=== PATIENT | female | born 1960 | race African-American/Black ===

== ENCOUNTER 2017-07-24 13:25 | Inpatient (IN) | payer OTHER ==
[2017-07-24 15:47] VITALS: BMI 24.7
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
[2017-07-24] MEDS ORDERED: MAGNESIUM HYDROX 2400MG/30ML ORAL SUSPENSION 30 ML CUP PO PRN (18:18)
[2017-07-24] MEDS ORDERED: ACETAMINOPHEN 325 MG TABLET (FP) PO PRN (18:18)
[2017-07-24] MEDS ORDERED: LOPERAMIDE HCL 2 MG CAPSULE PO PRN (18:18)
[2017-07-24] MEDS ORDERED: MAG HYDROX/AL HYDROX/SIMETH 30 ML UNIT-DOSE CUP PO PRN (18:18)
[2017-07-24] MEDS ORDERED: MENTHOL/PHENOL 1 EACH UD MM PRN (18:18)
[2017-07-24] MEDS ORDERED: MAGNESIUM CITRATE 300 ML BOTTLE PO PRN (18:18)
[2017-07-24] MEDS ORDERED: NICOTINE POLACRILEX 2 MG GUM BC PRN (18:18)
[2017-07-24] MEDS ORDERED: P-EPHED 60MG/TRIPROLIDI 2.5MG TABLET PO PRN (18:18)
[2017-07-24] MEDS ORDERED: ALBUTEROL SO4 2.5/IPRATROPIUM 0.5 INH SOL 3 ML VIAL.NEB. NEB PRN (18:22)
[2017-07-24] MEDS ORDERED: ALBUTEROL SO4 18 GM HFA INHALER IH PRN (18:22)
[2017-07-24] MEDS ORDERED: BACLOFEN 10 MG TABLET (FP) PO PRN (18:23)
[2017-07-24] MEDS ORDERED: TUBERCULIN PPD 5 TU/0.1ML VIAL ID ONE (22:03)
[2017-07-24] MEDS: THIAMINE HCL 100 MG TABLET (FP) PO SCH (22:07)
[2017-07-24] MEDS: BUDESONIDE/FORMETEROL FUMARATE 80/4.5 mcg INHALER IH SCH (22:07)
[2017-07-24] MEDS: BUPRENORPHINE/NALOXONE 8 MG/2 MG FILM PACKET SL SCH (22:08)
[2017-07-24] MEDS: RANITIDINE HCL 150 MG TABLET (FP) PO SCH (22:09)
[2017-07-24] MEDS: diphenhydrAMINE HCL 50 MG CAPSULE PO PRN (22:09)
[2017-07-24] MEDS: GABAPENTIN 300 MG CAPSULE (FP) PO SCH (22:09)
[2017-07-24] MEDS: MONTELUKAST NA 10 MG TABLET PO SCH (22:10)
[2017-07-24] MEDS: METHYL SALICYLATE/MENTHOL OINT 30 GM TUBE TP SCH (22:10)
[2017-07-24] MEDS: guaiFENesin/D-METHORPHAN HB 10 ML UNIT-DOSE CUPS PO PRN (22:11)
[2017-07-24] MEDS: traZODone HCL 100 MG TABLET (FP) PO SCH (22:58)
[2017-07-24] MEDS: ARIPiprazole 10 MG TABLET PO SCH (23:20)
[2017-07-25 01:27] LABS: URINE APPEARANCE CLOUDY; URINE BILIRUBIN NEGATIVE (NEGATIVE); URINE BLOOD NEGATIVE (NEGATIVE); URINE COLOR YELLOW; URINE GLUCOSE (UA) NEGATIVE (NEGATIVE); URINE KETONE NEGATIVE (NEGATIVE); URINE NITRITE NEGATIVE (NEGATIVE); URINE PROTEIN NEGATIVE (NEGATIVE); URINE UROBILINOGEN NEGATIVE mg/dL (0.2-1.0)
[2017-07-25] MEDS: GABAPENTIN 300 MG CAPSULE (FP) PO SCH ×3 (06:17→21:54)
[2017-07-25] MEDS: BUPRENORPHINE/NALOXONE 8 MG/2 MG FILM PACKET SL SCH ×3 (06:18→21:55)
[2017-07-25] MEDS ORDERED: PT OWN MED DRAWER 7, Y5N ONE (08:47)
[2017-07-25] MEDS ORDERED: predniSONE 10 MG TABLET (UD) PO ONE (10:00)
[2017-07-25 10:03] LABS: URINE LEUK ESTERASE TRACE (NEGATIVE)
[2017-07-25 10:05] LABS: URINE BACTERIA FEW /hpf (NEGATIVE); URINE RBC 0-3 /hpf (0-3); URINE WBC 0-3 /hpf (3-5)
[2017-07-25] MEDS: RANITIDINE HCL 150 MG TABLET (FP) PO SCH ×2 (10:38→21:54)
[2017-07-25] MEDS: BENZTROPINE MESYLATE 1 MG TABLET (FP) PO SCH (10:38)
[2017-07-25] MEDS: NICOTINE 14 MG/24 HOURS TOPICAL PATCH TD SCH (10:38)
[2017-07-25] MEDS: BUDESONIDE/FORMETEROL FUMARATE 80/4.5 mcg INHALER IH SCH ×2 (10:38→21:56)
[2017-07-25] MEDS: PRENATAL VITAMINS W/ FOLIC ACID TABLET (FP) PO SCH (10:38)
[2017-07-25] MEDS: METHYL SALICYLATE/MENTHOL OINT 30 GM TUBE TP SCH ×2 (10:41→21:55)
[2017-07-25 12:38] LABS: MCH 27.6 pg (25.7-33.7); MCHC 32.1 g/dl (32.0-36.0); MEAN CELL VOLUME 86.2 fl (80-96); MEAN PLT VOLUME 9.2 fl (7.5-11.1); PLATELET COUNT 162 K/MM3 (134-434); RDW 14.7 % (11.6-15.6); WHITE BLOOD COUNT 4.8 K/mm3 (4.0-10.0)
[2017-07-25 12:39] LABS: ALBUMIN 2.9 g/dl (3.4-5.0); ALK PHOS 103 U/L (45-117); ANION GAP 6 (8-16); BILIRUBIN,TOTAL 0.2 mg/dL (0.2-1.0); CO2 25 mmol/L (21-32); CREATININE 1.1 mg/dL (0.55-1.02); GLUCOSE,RANDOM 151 mg/dL (74-106); SGOT/AST 12 U/L (15-37); SGPT/ALT 26 U/L (12-78); TOT PROT 5.9 g/dl (6.4-8.2)
[2017-07-25] MEDS: THIAMINE HCL 100 MG TABLET (FP) PO SCH (21:53)
[2017-07-25] MEDS: ARIPiprazole 10 MG TABLET PO SCH (21:54)
[2017-07-25] MEDS: MONTELUKAST NA 10 MG TABLET PO SCH (21:54)
[2017-07-25] MEDS: traZODone HCL 100 MG TABLET (FP) PO SCH (21:54)
[2017-07-26] MEDS: GABAPENTIN 300 MG CAPSULE (FP) PO SCH ×3 (07:06→22:04)
[2017-07-26] MEDS: BUPRENORPHINE/NALOXONE 8 MG/2 MG FILM PACKET SL SCH ×3 (07:07→22:10)
[2017-07-26] MEDS ORDERED: PT OWN MED DRAWER 7, Y5N ONE (09:03)
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
[2017-07-26] MEDS ORDERED: predniSONE 20 MG TABLET (UD) PO ONE ×2 (10:00)
[2017-07-26] MEDS: RANITIDINE HCL 150 MG TABLET (FP) PO SCH ×2 (10:50→22:04)
[2017-07-26] MEDS: METHYL SALICYLATE/MENTHOL OINT 30 GM TUBE TP SCH ×2 (10:50→22:08)
[2017-07-26] MEDS: BENZTROPINE MESYLATE 1 MG TABLET (FP) PO SCH (10:50)
[2017-07-26] MEDS: PRENATAL VITAMINS W/ FOLIC ACID TABLET (FP) PO SCH (10:51)
[2017-07-26] MEDS: BUDESONIDE/FORMETEROL FUMARATE 80/4.5 mcg INHALER IH SCH ×2 (10:52→22:04)
[2017-07-26] MEDS: NICOTINE 14 MG/24 HOURS TOPICAL PATCH TD SCH (10:54)
--- NOTE | 2017-07-26 11:59 | EKG ---
Test Reason : Blood Pressure : / mmHG Vent. Rate : 096 BPM Atrial Rate : 096 BPM P-R Int : 138 ms QRS Dur : 090 ms QT Int : 366 ms P-R-T Axes : 044 020 034 degrees QTc Int : 462 ms NORMAL SINUS RHYTHM POSSIBLE ANTERIOR INFARCT , AGE UNDETERMINED ABNORMAL ECG NO PREVIOUS ECGS AVAILABLE Confirmed by TRUNG WALLACE, PRAVEEN ([id number]) on 07/26/2017 11:59:07 AM Referred By: Confirmed By:PRAVEEN NINO MD
[2017-07-26] MEDS: MONTELUKAST NA 10 MG TABLET PO SCH (22:04)
[2017-07-26] MEDS: traZODone HCL 100 MG TABLET (FP) PO SCH (22:04)
[2017-07-26] MEDS: ARIPiprazole 10 MG TABLET PO SCH (22:06)
[2017-07-26] MEDS: THIAMINE HCL 100 MG TABLET (FP) PO SCH (22:10)
[2017-07-27] MEDS: GABAPENTIN 300 MG CAPSULE (FP) PO SCH ×3 (06:41→21:48)
[2017-07-27] MEDS: BUPRENORPHINE/NALOXONE 8 MG/2 MG FILM PACKET SL SCH ×2 (06:41→13:33)
[2017-07-27] MEDS ORDERED: cloNIDine HCL 0.1 MG TABLET PO ONE (07:02)
[2017-07-27] MEDS ORDERED: PT OWN MED DRAWER 7, Y5N ONE ×2 (09:14→10:38)
[2017-07-27] MEDS ORDERED: predniSONE 10 MG TABLET (UD) PO ONE (10:00)
[2017-07-27] MEDS: PRENATAL VITAMINS W/ FOLIC ACID TABLET (FP) PO SCH (10:37)
[2017-07-27] MEDS: RANITIDINE HCL 150 MG TABLET (FP) PO SCH ×2 (10:37→22:19)
[2017-07-27] MEDS: NICOTINE 14 MG/24 HOURS TOPICAL PATCH TD SCH (10:37)
[2017-07-27] MEDS: BENZTROPINE MESYLATE 1 MG TABLET (FP) PO SCH (10:37)
[2017-07-27] MEDS: BUDESONIDE/FORMETEROL FUMARATE 80/4.5 mcg INHALER IH SCH ×2 (10:39→21:48)
[2017-07-27] MEDS: METHYL SALICYLATE/MENTHOL OINT 30 GM TUBE TP SCH ×2 (11:00→21:48)
--- NOTE | 2017-07-27 13:34 | PN ---
[facility] Progress Note Note: decreased to 8mg bid suboxone effective tomorrow
[2017-07-27] MEDS: ARIPiprazole 10 MG TABLET PO SCH (21:48)
[2017-07-27] MEDS: MONTELUKAST NA 10 MG TABLET PO SCH (21:48)
[2017-07-27] MEDS: traZODone HCL 100 MG TABLET (FP) PO SCH (21:48)
[2017-07-27] MEDS: THIAMINE HCL 100 MG TABLET (FP) PO SCH (21:49)
[2017-07-27] MEDS: diphenhydrAMINE HCL 50 MG CAPSULE PO PRN (21:50)
[2017-07-28] MEDS: GABAPENTIN 300 MG CAPSULE (FP) PO SCH (06:44)
[2017-07-28] MEDS ORDERED: PT OWN MED DRAWER 7, Y5N ONE (08:52)
[2017-07-28] MEDS ORDERED: CYCLOBENZAPRINE HCL 5 MG TABLET PO PRN (09:45)
[2017-07-28] MEDS: RANITIDINE HCL 150 MG TABLET (FP) PO SCH ×2 (09:52→21:57)
[2017-07-28] MEDS: BUDESONIDE/FORMETEROL FUMARATE 80/4.5 mcg INHALER IH SCH ×2 (09:52→21:59)
[2017-07-28] MEDS: PRENATAL VITAMINS W/ FOLIC ACID TABLET (FP) PO SCH (09:52)
[2017-07-28] MEDS: BENZTROPINE MESYLATE 1 MG TABLET (FP) PO SCH (09:52)
[2017-07-28] MEDS: NICOTINE 14 MG/24 HOURS TOPICAL PATCH TD SCH (09:52)
[2017-07-28] MEDS: METHYL SALICYLATE/MENTHOL OINT 30 GM TUBE TP SCH ×2 (09:54→21:58)
[2017-07-28] MEDS ORDERED: BUPRENORPHINE/NALOXONE 8 MG/2 MG FILM PACKET SL SCH (10:00)
[2017-07-28] MEDS ORDERED: GABAPENTIN 300 MG CAPSULE (FP) PO SCH (10:15)
[2017-07-28] MEDS: BUPRENORPHINE/NALOXONE 8 MG/2 MG FILM PACKET SL SCH (11:01)
[2017-07-28] MEDS: TIOTROPIUM BROMIDE 18 MCG/INH (DEVICE W/ 5 CAPSULES) IH SCH (11:01)
[2017-07-28] MEDS: GABAPENTIN 100 MG CAPSULE (FP) PO SCH ×2 (13:42→21:57)
[2017-07-28] MEDS: THIAMINE HCL 100 MG TABLET (FP) PO SCH (21:57)
[2017-07-28] MEDS: traZODone HCL 100 MG TABLET (FP) PO SCH (21:57)
[2017-07-28] MEDS: ARIPiprazole 10 MG TABLET PO SCH (21:58)
[2017-07-28] MEDS: MONTELUKAST NA 10 MG TABLET PO SCH (21:58)
[2017-07-29] MEDS: GABAPENTIN 100 MG CAPSULE (FP) PO SCH ×3 (06:45→21:47)
[2017-07-29] MEDS: NICOTINE 14 MG/24 HOURS TOPICAL PATCH TD SCH (09:07)
[2017-07-29] MEDS: PRENATAL VITAMINS W/ FOLIC ACID TABLET (FP) PO SCH (09:08)
[2017-07-29] MEDS: RANITIDINE HCL 150 MG TABLET (FP) PO SCH ×2 (09:08→21:47)
[2017-07-29] MEDS: METHYL SALICYLATE/MENTHOL OINT 30 GM TUBE TP SCH ×2 (09:08→21:48)
[2017-07-29] MEDS: BENZTROPINE MESYLATE 1 MG TABLET (FP) PO SCH (09:08)
[2017-07-29] MEDS: TIOTROPIUM BROMIDE 18 MCG/INH (DEVICE W/ 5 CAPSULES) IH SCH (09:09)
[2017-07-29] MEDS: BUDESONIDE/FORMETEROL FUMARATE 80/4.5 mcg INHALER IH SCH ×2 (09:09→21:48)
[2017-07-29] MEDS: BUPRENORPHINE/NALOXONE 8 MG/2 MG FILM PACKET SL SCH ×3 (09:21→21:48)
[2017-07-29] MEDS: THIAMINE HCL 100 MG TABLET (FP) PO SCH (21:47)
[2017-07-29] MEDS: traZODone HCL 100 MG TABLET (FP) PO SCH (21:47)
[2017-07-29] MEDS: ARIPiprazole 10 MG TABLET PO SCH (21:48)
[2017-07-29] MEDS: MONTELUKAST NA 10 MG TABLET PO SCH (21:48)
[2017-07-30] MEDS: guaiFENesin/D-METHORPHAN HB 10 ML UNIT-DOSE CUPS PO PRN ×2 (03:08→13:11)
[2017-07-30] MEDS: GABAPENTIN 100 MG CAPSULE (FP) PO SCH ×3 (06:50→21:46)
[2017-07-30] MEDS: METHYL SALICYLATE/MENTHOL OINT 30 GM TUBE TP SCH ×2 (10:25→21:45)
[2017-07-30] MEDS: TIOTROPIUM BROMIDE 18 MCG/INH (DEVICE W/ 5 CAPSULES) IH SCH (10:26)
[2017-07-30] MEDS: RANITIDINE HCL 150 MG TABLET (FP) PO SCH ×2 (10:26→21:46)
[2017-07-30] MEDS: PRENATAL VITAMINS W/ FOLIC ACID TABLET (FP) PO SCH (10:26)
[2017-07-30] MEDS: BENZTROPINE MESYLATE 1 MG TABLET (FP) PO SCH (10:26)
[2017-07-30] MEDS: NICOTINE 14 MG/24 HOURS TOPICAL PATCH TD SCH (10:27)
[2017-07-30] MEDS: BUDESONIDE/FORMETEROL FUMARATE 80/4.5 mcg INHALER IH SCH ×2 (10:27→21:46)
[2017-07-30] MEDS: BUPRENORPHINE/NALOXONE 8 MG/2 MG FILM PACKET SL SCH ×2 (10:28→21:47)
[2017-07-30] MEDS ORDERED: PT OWN MED DRAWER 7, Y5N ONE (11:59)
[2017-07-30] MEDS ORDERED: ARIPiprazole 5 MG TABLET (FP) ONE (18:46)
[2017-07-30] MEDS: ARIPiprazole 10 MG TABLET PO SCH (21:44)
[2017-07-30] MEDS: traZODone HCL 100 MG TABLET (FP) PO SCH (21:45)
[2017-07-30] MEDS: MONTELUKAST NA 10 MG TABLET PO SCH (21:46)
[2017-07-30] MEDS: SUVOREXANT 10 MG TABLET PO PRN (21:47)
[2017-07-30] MEDS: THIAMINE HCL 100 MG TABLET (FP) PO SCH (21:47)
[2017-07-31] MEDS: GABAPENTIN 100 MG CAPSULE (FP) PO SCH ×3 (06:49→22:07)
--- NOTE | 2017-07-31 08:14 | PN ---
[facility] Progress Note Note: HISTORY OF HTN ON HYDROCHLOROTHIAZIDE 25 MGS PO DIALY,ORDERED,JESSEE MONITORING
[2017-07-31] MEDS: HYDROCHLOROTHIAZIDE 25 MG TABLET (FP) PO SCH (09:01)
[2017-07-31] MEDS: PRENATAL VITAMINS W/ FOLIC ACID TABLET (FP) PO SCH (10:53)
[2017-07-31] MEDS: RANITIDINE HCL 150 MG TABLET (FP) PO SCH ×2 (10:53→22:07)
[2017-07-31] MEDS: BUDESONIDE/FORMETEROL FUMARATE 80/4.5 mcg INHALER IH SCH ×2 (10:53→22:08)
[2017-07-31] MEDS: TIOTROPIUM BROMIDE 18 MCG/INH (DEVICE W/ 5 CAPSULES) IH SCH (10:53)
[2017-07-31] MEDS: NICOTINE 14 MG/24 HOURS TOPICAL PATCH TD SCH (10:53)
[2017-07-31] MEDS: BENZTROPINE MESYLATE 1 MG TABLET (FP) PO SCH (10:53)
[2017-07-31] MEDS: BUPRENORPHINE/NALOXONE 8 MG/2 MG FILM PACKET SL SCH ×2 (10:53→22:08)
[2017-07-31] MEDS: METHYL SALICYLATE/MENTHOL OINT 30 GM TUBE TP SCH ×2 (10:56→22:08)
[2017-07-31] MEDS ORDERED: ARIPiprazole 5 MG TABLET (FP) ONE (19:35)
[2017-07-31] MEDS: THIAMINE HCL 100 MG TABLET (FP) PO SCH (22:07)
[2017-07-31] MEDS: traZODone HCL 100 MG TABLET (FP) PO SCH (22:07)
[2017-07-31] MEDS: MONTELUKAST NA 10 MG TABLET PO SCH (22:08)
[2017-07-31] MEDS: ARIPiprazole 10 MG TABLET PO SCH (22:08)
[2017-07-31] MEDS: SUVOREXANT 10 MG TABLET PO PRN (22:11)
[2017-08-01] MEDS: GABAPENTIN 100 MG CAPSULE (FP) PO SCH ×3 (06:43→21:53)
[2017-08-01] MEDS ORDERED: PT OWN MED DRAWER 7, Y5N ONE (09:10)
[2017-08-01] MEDS: BUDESONIDE/FORMETEROL FUMARATE 80/4.5 mcg INHALER IH SCH ×2 (10:34→21:54)
[2017-08-01] MEDS: TIOTROPIUM BROMIDE 18 MCG/INH (DEVICE W/ 5 CAPSULES) IH SCH (10:34)
[2017-08-01] MEDS: PRENATAL VITAMINS W/ FOLIC ACID TABLET (FP) PO SCH (10:35)
[2017-08-01] MEDS: BENZTROPINE MESYLATE 1 MG TABLET (FP) PO SCH (10:35)
[2017-08-01] MEDS: RANITIDINE HCL 150 MG TABLET (FP) PO SCH ×2 (10:35→21:53)
[2017-08-01] MEDS: HYDROCHLOROTHIAZIDE 25 MG TABLET (FP) PO SCH (10:35)
[2017-08-01] MEDS: NICOTINE 14 MG/24 HOURS TOPICAL PATCH TD SCH (10:36)
[2017-08-01] MEDS: BUPRENORPHINE/NALOXONE 8 MG/2 MG FILM PACKET SL SCH ×2 (10:37→21:54)
[2017-08-01] MEDS: METHYL SALICYLATE/MENTHOL OINT 30 GM TUBE TP SCH ×2 (10:38→21:45)
[2017-08-01] MEDS: traZODone HCL 100 MG TABLET (FP) PO SCH (21:53)
[2017-08-01] MEDS: THIAMINE HCL 100 MG TABLET (FP) PO SCH (21:53)
[2017-08-01] MEDS: MONTELUKAST NA 10 MG TABLET PO SCH (21:53)
[2017-08-01] MEDS: SUVOREXANT 10 MG TABLET PO PRN (21:56)
[2017-08-01] MEDS: ARIPiprazole 10 MG TABLET PO SCH (21:56)
[2017-08-02] MEDS: GABAPENTIN 100 MG CAPSULE (FP) PO SCH ×2 (06:50→13:15)
[2017-08-02 07:25] VITALS: TEMP 98.6
[2017-08-02] MEDS ORDERED: PT OWN MED DRAWER 7, Y5N ONE (08:51)
[2017-08-02 09:10] VITALS: BP 121/79; PULSE 73
[2017-08-02] MEDS: RANITIDINE HCL 150 MG TABLET (FP) PO SCH (10:44)
[2017-08-02] MEDS: PRENATAL VITAMINS W/ FOLIC ACID TABLET (FP) PO SCH (10:44)
[2017-08-02] MEDS: NICOTINE 14 MG/24 HOURS TOPICAL PATCH TD SCH (10:45)
[2017-08-02] MEDS: BENZTROPINE MESYLATE 1 MG TABLET (FP) PO SCH (10:45)
[2017-08-02] MEDS: HYDROCHLOROTHIAZIDE 25 MG TABLET (FP) PO SCH (10:45)
[2017-08-02] MEDS: TIOTROPIUM BROMIDE 18 MCG/INH (DEVICE W/ 5 CAPSULES) IH SCH (10:46)
[2017-08-02] MEDS: BUDESONIDE/FORMETEROL FUMARATE 80/4.5 mcg INHALER IH SCH (10:46)
[2017-08-02] MEDS: BUPRENORPHINE/NALOXONE 8 MG/2 MG FILM PACKET SL SCH (10:47)
[2017-08-02] MEDS: METHYL SALICYLATE/MENTHOL OINT 30 GM TUBE TP SCH (10:49)
--- NOTE | 2017-08-02 16:41 | PN ---
Psychiatric Progress Note Vital Signs: Vital Signs Period Temp Pulse Resp BP Sys/De Souza Pulse Ox Last 24 Hr 98.6 F-98.6 F 64-73 18-18 121-160/79-91 Date of Session: 08/02/17 Chief Complaint:: Discharge visit HPI: Patient addressed Alcohol and Opioid dependence comorbid with Schizophrenia. ROS: COPD,BA,GERD. Current Side Effect: No Lab tests ordered: No Lab tests reviewed: Yes Provider note:: Patient completed this program today (early discharge).She has met her treatment goals and will continue to addres her issues on outpatient basis. 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]; J43.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]; J43.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] (4) Chronic back pain Qualifiers: Back pain location: low back pain Back pain laterality: bilateral Sciatica presence: with sciatica Sciatica laterality: bilateral sciatica Qualified Code(s): M54.42 - Lumbago with sciatica, left side; M54.42 - Lumbago with sciatica, left side; G89.29 - Other chronic pain; G89.29 - Other chronic pain (5) Encounter for monitoring Suboxone maintenance therapy Comment: 05/10 TID (6) GERD (gastroesophageal reflux disease) Qualifiers: Esophagitis presence: without esophagitis Qualified Code(s): K21.9 - Gastro-esophageal reflux disease without esophagitis; K21.9 - Gastro- esophageal reflux disease without esophagitis; K21.9 - Gastro-esophageal reflux disease without esophagitis (7) Schizophrenia Qualifiers: Schizophrenia type: unspecified Qualified Code(s): F20.9 - Schizophrenia, unspecified; F20.9 - Schizophrenia, unspecified; F20.9 - Schizophrenia, unspecified; F20.9 - Schizophrenia, unspecified
== END 2017-08-02 12:35 | disposition home or self-care (01) | DRG 772 ==
LOC: YASAS 13:25 → Y3E 19:21
PROVIDERS: ADMIT Psychiatry & Neurology Psychiatry; ATTEND Psychiatry & Neurology Psychiatry
PROC: HZ42ZZZ Group Counseling for Substance Abuse Treatment, Cognitive-Behavioral (ICD-10-PCS; principal; 2017-07-24)
DX: F11.20 Opioid dependence, uncomplicated (principal); F10.20 Alcohol dependence, uncomplicated; F17.213 Nicotine dependence, cigarettes, with withdrawal; F20.9 Schizophrenia, unspecified; I10 Essential (primary) hypertension; J45.30 Mild persistent asthma, uncomplicated; J43.0 Unilateral pulmonary emphysema [MacLeod's syndrome]; M54.5 Low back pain; G89.29 Other chronic pain; K21.9 Gastro-esophageal reflux disease without esophagitis
CPT/HCPCS: 36415; 80053; 81003; 81015; 85027; 86593; 93005; 93010; J0475